=== PATIENT | male | born 1960 | race Caucasian/White ===

== ENCOUNTER 2021-08-14 21:46 | Emergency (ER) | payer OTHER ==
[~2021-08-14] VITALS: Ht 188 cm; Wt 119.0 kg
[~2021-08-14 21:46] MED LIST: AMLO2.5T4 PO; ASPI-1264 PO; ATEN-169 PO; ATOR20TA PO; HYT5T PO; LORA0.5T PO; METH-233 PO; OMEG1CAP46 PO; OMEP-84 PO; VENL25TA48 PO; VITAMIN B 12 PO
[2021-08-14] MEDS ORDERED: CASIRIVIMAB/IMDEVIMAB inject. 10 ML in normal saline 100ml IV soln 100 ML IV ONE (22:35)
[2021-08-14] MEDS ORDERED: acetaminophen 325mg tablet PO PRN (22:45)
[2021-08-14] MEDS ORDERED: epiNEPHrine 1 mg/ml inj IM PRN (22:45)
[2021-08-14] MEDS ORDERED: famotidine/PF 10 mg/ml inj IV PRN (22:45)
[2021-08-14] MEDS ORDERED: diphenhydrAMINE 50 mg/ml inj IV PRN (22:45)
[2021-08-14] MEDS ORDERED: hydrocortisone sod succ/PF 100mg/2ml inj. IV PRN (22:45)
[2021-08-14] MEDS ORDERED: albuterol 2.5 MG/3 ML nebule NEB PRN (22:45)
[2021-08-14 23:56] VITALS: BP 131/68
== END 2021-08-15 | disposition home or self-care (01) ==
LOC: ER 21:47
DX: U07.1 COVID-19 (principal); R19.7 Diarrhea, unspecified; R09.81 Nasal congestion; R06.02 Shortness of breath; R05.9 Cough, unspecified; I10 Essential (primary) hypertension; F41.9 Anxiety disorder, unspecified; E11.9 Type 2 diabetes mellitus without complications; Z86.73 Personal history of transient ischemic attack (TIA), and cerebral infarction without residual deficits; Z72.89 Other problems related to lifestyle; Z88.8 Allergy status to other drugs, medicaments and biological substances; Z79.82 Long term (current) use of aspirin; Z79.899 Other long term (current) drug therapy
CPT/HCPCS: 71045; 99283; M0243; Q0244

== ENCOUNTER 2024-09-13 17:55 | Emergency (ER) | payer OTHER ==
[~2024-09-13] VITALS: Ht 188 cm; Wt 104.5 kg
[2024-09-13] MEDS ORDERED: TRAZ-251 PO (22:04)
[2024-09-13] MEDS: quetiapine 100mg tablet PO ONE (22:16)
[2024-09-13] MEDS: traZODone 50mg tablet PO STA (22:17)
[2024-09-13 22:46] VITALS: BP 148/88; PULSE 81; RESP 16; TEMP 98.3; O2SAT 98
== END 2024-09-13 22:50 | disposition home or self-care (01) ==
LOC: ER 17:55
DX: R45.851 Suicidal ideations (principal); Z20.822 Contact with and (suspected) exposure to COVID-19; I10 Essential (primary) hypertension; F41.9 Anxiety disorder, unspecified; F32.A Depression, unspecified; G20.A1 Parkinson's disease without dyskinesia, without mention of fluctuations; Z88.5 Allergy status to narcotic agent; Z88.6 Allergy status to analgesic agent; Z79.899 Other long term (current) drug therapy; Z79.82 Long term (current) use of aspirin; Z86.73 Personal history of transient ischemic attack (TIA), and cerebral infarction without residual deficits; Z87.891 Personal history of nicotine dependence
CPT/HCPCS: 36415; 87811; 99285

== ENCOUNTER 2024-10-11 19:19 | Emergency (ER) | payer OTHER ==
[~2024-10-11] VITALS: Ht 185.4 cm; Wt 101.0 kg
[~2024-10-11 19:19] MED LIST changes: +TRAZ-251 PO
[2024-10-11 19:22] VITALS: TEMP 98.5
[2024-10-11] MEDS ORDERED: QUET-1 PO (19:56)
[2024-10-11] MEDS: quetiapine 100mg tablet PO ONE (20:09)
[2024-10-11 20:27] VITALS: BP 133/78; PULSE 78; RESP 14; O2SAT 96
== END 2024-10-11 20:31 | disposition home or self-care (01) ==
LOC: ER 19:19
DX: F99 Mental disorder, not otherwise specified (principal); I10 Essential (primary) hypertension; Z76.0 Encounter for issue of repeat prescription; Z88.5 Allergy status to narcotic agent; Z79.1 Long term (current) use of non-steroidal anti-inflammatories (NSAID); Z79.899 Other long term (current) drug therapy; Z86.73 Personal history of transient ischemic attack (TIA), and cerebral infarction without residual deficits; Z72.89 Other problems related to lifestyle
CPT/HCPCS: 99284

== ENCOUNTER 2025-05-29 09:51 | Inpatient (IN) | payer OTHER, MEDICARE ==
[~2025-05-29] VITALS: Ht 188 cm; Wt 103.0 kg
[2025-05-29 10:14] LABS: MEAN PLATELET VOLUME 9.2 FL (7.4-10.4); RED CELL DISTRIBUTION WIDTH 15.0 % (11.5-14.5)
[2025-05-29 10:22] LABS: CREATININE 1.44 MG/DL (0.60-1.10); TOTAL CARBON DIOXIDE 25.0 MMOL/L (24-32); eCRCL 59 ML/MIN; eGFR 49 ML/MIN
--- NOTE | 2025-05-29 10:37 | RADIOLOGY REPORT ---
CHEST RADIOGRAPH Indication: sepsis alert Technique: Single frontal view of the chest was obtained COMPARISON: CHEST,SINGLE VIEW on DOS: 08/14/21 FINDINGS: Lines and Tubes: None Lungs: Clear Pleura: No effusion. No pneumothorax. Cardiomediastinal contours: Cardiomegaly Bones: Unremarkable IMPRESSION: No acute disease.
[2025-05-29] MEDS: CefTRIAXone/D5W-Rocephin 1gm 50 ML IV ONE (11:04)
[2025-05-29] MEDS: normal saline 1000ml 1,000 ML IV ONE ×2 (11:04→13:12)
[2025-05-29 12:12] LABS: LEUKOCYTE ESTERASE ,URINE NEGATIVE (Neg); NITRITES, URINE NEGATIVE (Neg); OCCULT BLOOD,URINE NEGATIVE (Neg)
[2025-05-29 12:13] LABS: UA COLLECTION TYPE VOIDED
[2025-05-29] MEDS: diltiazem 5mg/ml 5ml inj. IV ONE (12:46)
--- NOTE | 2025-05-29 13:11 | ELECTROCARDIOGRAPH REPORT ---
[facility] Test Date: 2025-05-29 Test Time: 09:56:45 Pat Name: TENNILLE GEE Department: EMERGENCY ROOM Room: Gender: M [employer]: : 1960 Requested By: FORTINO SOLANO Order Number: [id number] Reading MD: Measurements Intervals [place] Rate: 134 P: 223 LA: 89 QRS: 38 QRSD: 207 T: 38 QT: 412 QTc: 616 Interpretive Statements Ectopic atrial tachycardia, unifocal Right bundle branch block Please click the below link to view image of tracing.
[2025-05-29] MEDS: adenosine 3mg/ml 2ml vial IV ONE (13:53)
[2025-05-29] MEDS ORDERED: diltiazem-D5W 125mg/125ml 125 ML IV SCH (14:25)
[2025-05-29] MEDS: diltiazem-NS 100mg/100ml 100 ML IV SCH ×2 (14:39→21:11)
--- NOTE | 2025-05-29 14:50 | Physician Documentation ---
History of Present Illness ~ Chief Complaint: ALOC Stated Complaint: ALOC Time Seen by MD: 10:08 Primary Medical Doctor: ROBERT Mode of Arrival: EMS HPI 64 year old male BIB EMS after family members reported that he has been altered and they believe he may have a UTI. The patient has no medical complaints and denies fever, N/V/D, urinary symptoms, chest / abdominal pain. En route EMS noted an elevated heart rate. Medication Reconciliation Allergies: Coded Allergies: hydrocodone (Verified Adverse Reaction, Mild, hallucinate, 10/11/24) oxycodone (Verified Adverse Reaction, Mild, hallucinate, 10/11/24) Scheduled Amlodipine* (Norvasc*), 4 TAB PO DAILY, (Reported) Aspirin (Ecotrin*), 81 TAB PO DAILY, (Reported) Atorvastatin Calcium* (Lipitor*), 1 TABLET PO HS, (Reported) Clopidogrel Bisulfate (Plavix), 75 MG PO DAILY, (Reported) Gabapentin (Gabapentin), 1 CAP PO HS, (Reported) Levothyroxine Sodium (Levothyroxine Sodium), 200 PO QAM, (Reported) Pantoprazole Sodium (Pantoprazole Sodium), 1 TAB PO BID, (Reported) Quetiapine Fumarate (Seroquel), 2 TAB PO HS, (Reported) Ropinirole Hcl (Ropinirole Hcl), 1 TAB PO HS, (Reported) Tamsulosin Hcl* (Flomax*), 2 CAP PO HS, (Reported) Venlafaxine Hcl* (Effexor*), 300 MG PO DAILY, (Reported) [Vitamin B 12], 500 MCG PO DAILY, (Reported) Discontinued Medications Amlodipine Besylate (Amlodipine Besylate), 5 MG PO DAILY, (Reported) Discontinued Reason: Other Aspirin* (Aspirin*), 325 MG PO DAILY Discontinued Reason: Other Atenolol (Tenormin), 50 MG PO DAILY, (Reported) Discontinued Reason: patient no longer taking Atorvastatin Calcium* (Lipitor*), 20 MG PO HS, (Reported) Discontinued Reason: Other Lorazepam* (Ativan*), 0.5 MG PO TID PRN for for anxiety/agitation, (Reported) Discontinued Reason: patient no longer taking Methocarbamol (Methocarbamol), 750 MG PO BID, (Reported) Discontinued Reason: patient no longer taking [place]-3 Fatty Acids/Fish Oil ([place] 3 1,000 Mg Softgel), 1 EACH PO DAILY, (Repor reggie) Discontinued Reason: patient no longer taking Omeprazole* (Prilosec*), 40 MG PO DAILY, (Reported) Discontinued Reason: patient no longer taking Terazosin Hcl (HYTRIN capsule), 5 MG PO DAILY, (Reported) Discontinued Reason: patient no longer taking Trazodone HCl (Trazodone HCl), 1 TAB PO HS Discontinued Reason: patient no longer taking Past Medical History Past Medical History: CVA/TIA/Stroke, Multiple Sclerosis, Hypertension, Anxiety Past Surgical History: noncontributory Smoking Status: Former smoker Alcohol Use: Occasionally Drug Use: none Review of Systems All Other Systems at this time: Reviewed and Negative Physical Exam Vital Signs: RN Vital Signs have been reviewed: Yes, Temperature: 98.2, Source: Oral, Heart Rate: 131, Respiratory Rate: 19, BP: 146/108, Pulse Oximetry: 100, Weight: 103.000 Oxygen Flow Rate: 0 Physical Exam HEENT: PERRL, moist oral mucosa, EOMI Pulmonary: No respiratory distress Cardiac: regular tachycardia, no murmur, rub or gallop GI: nondistended, soft, nontender, no guarding, no rebound MSK: no deformity Skin: w/d/i, no rash Neuro: partially oriented, alert, nonfocal Psych: normal affect Progress Results/Orders Results/Orders Orders - FORTINO SOLANO MD Culture Blood (05/29/25 10:05) Chest,Single View (05/29/25 10:05) Monitor (05/29/25 10:05) Saline Lock (05/29/25 10:05) Straight Cath For Urine Sample (05/29/25 10:05) Page Hospitalist (05/29/25 ) Completed Orders - FORTINO SOLANO MD Cbc/Diff (05/29/25 10:05) Urinalysis, Cult If Indicated (05/29/25 10:05) Chest,Single View (05/29/25 10:05) Procalcitonin (05/29/25 10:05) Lacticsepsis (05/29/25 10:05) Normal Saline 1000ml (0.9% Sodium Chlori (05/29/25 10:45) Ceftriaxone/D4w-Vuwdcenz 1gm (Rocephin 1 (05/29/25 10:50) Lactic,2hr (05/29/25 11:44) Diltiazem Iv (Cardizem Iv 5mg/Ml Inj.) (05/29/25 12:40) Normal Saline 1000ml (0.9% Sodium Chlori (05/29/25 13:05) Electrocardiogram (05/29/25 09:56) Adenosine Inj. (Adenocard Inj.) (05/29/25 13:40) Diltiazem-Ns 100mg/100ml (Cardizem-Ns 10 (05/29/25 14:15) CMP (05/29/25 10:04) Hgb A1c (05/29/25 10:04) MG (05/29/25 10:04) PBNP (05/29/25 10:04) Vital Signs 05/29/25 05/29/25 05/29/25 05/29/25 09:54 10:03 11:08 11:18 Temp 98.2 Pulse 135 132 131 Resp 18 16 18 19 B/P (MAP) 106/74 98/70 (79) 114/83 (93) Pulse Ox 100 98 100 05/29/25 05/29/25 05/29/25 05/29/25 12:12 12:46 12:48 13:13 Temp 98.2 98.2 Pulse 131 131 131 130 Resp 21 17 15 B/P (MAP) 137/97 (110) 143/100 143/100 (114) 145/104 (118) Pulse Ox 98 99 99 O2 Flow Rate 0 05/29/25 05/29/25 13:55 14:39 Temp 98.2 Pulse 130 131 Resp 19 B/P (MAP) 144/102 (116) 146/108 Pulse Ox 100 O2 Flow Rate 0 Laboratory Tests Test 05/29/25 10:04 05/29/25 11:55 05/29/25 12:00 White Blood Count 4.6 Red Blood Count 4.48 L Hemoglobin 13.3 L Hematocrit 39.6 L Mean Corpuscular Volume 88.4 Mean Corpuscular Hemoglobin 29.7 Mean Corpuscular Hemoglobin Concent 33.6 Red Cell Distribution Width 15.0 H Platelet Count 144 Mean Platelet Volume 9.2 Neutrophils (%) (Auto) 69.0 Lymphocytes (%) (Auto) 18.1 L Monocytes (%) (Auto) 9.0 Eosinophils (%) (Auto) 3.0 Basophils (%) (Auto) 0.9 Neutrophils # (Auto) 3.2 Lymphocytes # (Auto) 0.8 L Monocytes # (Auto) 0.4 Eosinophils # (Auto) 0.1 Basophils # (Auto) 0.0 CBC Comment Sodium Level 140 Potassium Level 3.3 L Chloride Level 106 Carbon Dioxide Level 25.0 Anion Gap 9 Blood Urea Nitrogen 22 H Creatinine 1.44 H Estimated GFR/1.73 m2 49 BUN/Creatinine Ratio 15.3 Glucose Level 148 H Hemoglobin A1c 6.0 Lactic Acid Level 2.4 H 0.9 Calcium Level 7.9 L Magnesium Level 1.4 L Total Bilirubin 0.8 Aspartate Amino Transf (AST/SGOT) 15 Alanine Aminotransferase (ALT/SGPT) 18 Alkaline Phosphatase 111 Pro-B-Type Natriuretic Peptide 276 H Total Protein 6.2 L Albumin 3.3 L Globulin 2.9 Albumin/Globulin Ratio 1.1 Procalcitonin < 0.05 Chemistry Comments Urine Specimen Description Voided Urine Color Yellow Urine Clarity Clear Urine pH 6.0 Urine Specific [place] 1.020 Urine Protein Negative Urine Glucose (UA) Negative Urine Ketones Negative Urine Occult Blood Negative Urine Nitrite Negative Urine Bilirubin Negative Urine Urobilinogen 0.2 Urine Leukocyte Esterase Negative Urine Culture Indicated Not ind Volume Urine Centrifuged 10 ml Urine Comment Microbiology Date/Time Source Procedure Growth Status 05/29/25 10:32 Blood Arm Right Blood Culture - Preliminary NEGATIVE (LESS THAN 24 HOURS) Resulted EKG/XRAY/CT/US/VASC/MRI EKG : Indication: ALOC/confusion EKG: a flutter Additional Comment my interpretation: no STEMI criteria, rate 134/min, atrial flutter Chest X-Ray : Interpreted By: self Views: 1 VIEW Indication: ALOC/confusion Lungs: normal Mediastinum: cardiomegaly Ribs/Bones: normal Abdomen: normal Medical Decision Making Findings 64 year old male as above, with noted tachycardia which appeared to be either sinus tachycardia with aberrant conduction vs. atrial flutter with RVR. Workup was significant for atrial flutter with RVR after we slowed the patient's heart rate with adenosine and discerned the actual underlying rhythm. Started diltiazem drip and care transferred to hospitalist. This patient required 30 minutes of critical care time apart from separately billable procedures for rate control and volume resuscitation, frequent reexaminations. Differential Dx:Considerations: Include: DKA, encephalopathy, hypoglycemia, hypernatremia, subarachnoid hemorrhage, infection - sepsis, infection - UTI, heart failure, renal failure, respiratory failure Departure Disposition: ADMITTED INPATIENT Admitted to Inpatient Unit: to hospitalist Admission Level of Care: Med/Surg with Tele Impression: Primary Impression: Atrial flutter with rapid ventricular response Condition: Stable Referrals: NO PRIMARY CARE PROVIDER (PCP) Education Educated: Patient, Family Educated regarding: diagnosis, treatment, prognosis, need for follow up Signature Scribe Signature: . Attestation: . FORTINO SOLANO MD May 29, 2025 14:50
[2025-05-29] MEDS ORDERED: potassium Cl 40MEQ/1/2NS 520ml 520 ML IV PRN (15:15)
[2025-05-29] MEDS ORDERED: magnesium sulf-water 2g/50mL 50 ML IV PRN (15:15)
[2025-05-29] MEDS ORDERED: magnesium Cl slow-release 64mg tablet PO PRN (15:15)
[2025-05-29] MEDS ORDERED: magnesium sulf-water 4G/100mL 100 ML IV PRN (15:15)
[2025-05-29] MEDS ORDERED: potassium Cl 20 mEq SR tablet PO PRN (15:15)
[2025-05-29] MEDS ORDERED: magnesium hydroxide 30ml (MOM) UD suspension PO PRN (15:15)
[2025-05-29] MEDS ORDERED: HYDROcodone/acetaminophen 5mg/325mg tablet PO PRN (15:15)
[2025-05-29] MEDS ORDERED: mag hydrox/Alum hydrox/simeth 30ml oral suspension PO PRN (15:15)
[2025-05-29] MEDS ORDERED: ondansetron/PF 4mg/2ml inj IV PRN (15:15)
[2025-05-29] MEDS ORDERED: HYDROcodone/acetaminophen 10/325mg tab PO PRN (15:15)
[2025-05-29 16:00] LABS: PRO BRAIN NATRIURETIC PEPTIDE 276 PG/ML (0-125)
[2025-05-29 16:40] VITALS: BP 136/89; PULSE 133; RESP 18; TEMP 98.3; O2SAT 97
[2025-05-29 17:00] VITALS: BP 154/113; PULSE 130
[2025-05-29 17:15] VITALS: BP 151/101; PULSE 131
[2025-05-29 17:30] VITALS: BP 147/104; PULSE 132; RESP 20; O2SAT 95
--- NOTE | 2025-05-29 17:49 | ELECTROCARDIOGRAPH REPORT ---
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 AGUSTÍN Esparza Measurements Intervals [place] Rate: 106 P: 0 HI: 0 QRS: 14 QRSD: 188 T: -85 QT: 434 QTc: 577 Interpretive Statements Atrial flutter with predominant 3:1 AV block Right bundle branch block Electronically Signed On 05-29-2025 19:51:[address] AGUSTÍN Esparza Please click the below link to view image of tracing.
[2025-05-29] MEDS ORDERED: AMLO2.5T2 PO (17:53)
[2025-05-29 18:00] VITALS: BP_SYST 135; BP_SYST 158; BP_DIAS 101; BP_DIAS 109; PULSE 126; PULSE 136; RESP 23; TEMP 97.4; O2SAT 97
[2025-05-29] MEDS ORDERED: ATOR-429 PO (18:03)
[2025-05-29] MEDS ORDERED: GABA-530 PO (18:03)
[2025-05-29] MEDS ORDERED: QUET25TA PO (18:03)
[2025-05-29] MEDS ORDERED: ASPI-1071 PO (18:03)
[2025-05-29] MEDS ORDERED: PANT40TA54 PO (18:03)
[2025-05-29] MEDS ORDERED: TAMS-55 PO (18:03)
[2025-05-29] MEDS ORDERED: ROPI2TAB29 PO (18:03)
[2025-05-29] MEDS ORDERED: CLOP-32 PO (18:03)
[2025-05-29] MEDS ORDERED: LEVO150T8 PO (18:10)
--- NOTE | 2025-05-29 18:24 | HISTORY AND PHYSICAL-Residence ---
History & Physical Providers to CC Resident Creating Document: CECILIA LOPEZ, RES ~ History of Present Illness Primary Medical Doctor: ROBERT Reason for Admit\Complaint: Atrial flutter History of Present Illness This is a 64-year-old male with a history of CVA, stroke, factor V mutation, history of renal cancer s/p partial nephrectomy in 2006, history of thyroid cancer s/p thyroidectomy five years ago, hyperlipidemia, depression, restless leg syndrome was brought to the ER because of high heart rate and low blood pressure. Most of the history was taken from the patient's girlfriend. She reported that since the last few days she noticed increased forgetfulness. He also had two falls in the last one week secondary to balance issues. This morning she checked the blood pressure, showed a pressure of 77/85 and a pulse rate of 135, she contacted the [facility] who advised her to take the patient to ER. The patient denied any complaints of chest pain, palpitations, lightheadedness, leg swellings. Also denied any fever, dysuria, increased frequency of urination. Also denied headache, blurring of vision, slurring of speech, any focal weakness. Also denied any recent nausea or vomiting. Line patient denied any cardiac history, does not follow any internal revenue service agent Allergies: Coded Allergies: hydrocodone (Verified Adverse Reaction, Mild, hallucinate, 10/11/24) oxycodone (Verified Adverse Reaction, Mild, hallucinate, 10/11/24) Home Medications Home Medications Active Trazodone HCl 50 Mg Tablet 1 Tab PO HS 30 Days Aspirin* (Aspirin) 325 Mg Tablet 325 Mg PO DAILY Reported HYTRIN capsule (Terazosin Hcl) 5 Mg Capsule 5 Mg PO DAILY Ativan* (Lorazepam) 0.5 Mg Tablet 0.5 Mg PO TID PRN Methocarbamol 750 Mg Tablet 750 Mg PO BID Tenormin (Atenolol) 50 Mg Tablet 50 Mg PO DAILY Amlodipine Besylate 2.5 Mg Tablet 5 Mg PO DAILY [Vitamin B 12] 500 Mcg PO DAILY Lipitor* (Atorvastatin Calcium) 20 Mg Tablet 20 Mg PO HS Prilosec* (Omeprazole) 20 Mg Capsule.dr 40 Mg PO DAILY [place] 3 1,000 Mg Softgel ([place]-3 Fatty Acids/Fish Oil) 1 Each Capsule 1 Each PO DAILY Effexor* (Venlafaxine HCl) 25 Mg Tablet 300 Mg PO DAILY Past Medical History Past Medical History CVA, history of five strokes, the last one was three years ago, no residual weakness Factor five laden mutation, on Plavix History of renal cancer s/p left partial nephrectomy in 2007 History of thyroid cancer sp thyroidectomy five years ago Restless leg syndrome Hypertension Hyperlipidemia History of skin cancer Right groin hernia Past Surgical History Surgical History Comment Left partial nephrectomy in 2006 for renal cancer Thyroidectomy for thyroid cancer Past Social History Social History Comment Quit smoking 14 years ago, previously smoked about a pack a day for five years Occasional alcoholic Denies any history of drug use Lives with his girlfriend who is also his caregiver Uses a walker Smoking: Quit greater than 1 year Alcohol Use: Occasionally Drug Use: None ROS All Other Systems: Reviewed and Negative Constitutional: Reports: weakness Eyes: Denies: no symptoms reported, see HPI, pain, discharge, blurred vision, double vision, itching, photophobia, redness, tearing, other ENT: Denies: no symptoms reported, see HPI, ear pain, ear bleeding, ear discharge, hearing loss, ear ringing, nose pain, nose bleeding, nose congestion, nose discharge, throat pain, throat swelling, voice change, mouth pain, mouth bleeding, mouth swelling, other Respiratory: Denies: no symptoms reported, see HPI, cough, orthopnea, shortness of breath, SOB with exertion, SOB at rest, stridor, wheezing, hemoptysis, pain with breathing, other Cardiovascular: Denies: no symptoms reported, see HPI, chest pain, left arm pain, diaphoresis, lightheadedness, syncope, edema, palpitations, irregular heart rate, other Gastrointestinal: Denies: no symptoms reported, see HPI, abdomen distended, abdominal pain, nausea, vomiting, diarrhea, constipated, melena, hematemesis, hematochezia, rectal bleeding, rectal pain, dysphagia, poor appetite, poor fluid intake, other Genitourinary: Denies: no symptoms reported, see HPI, burning, discharge, dysuria, frequency, flank pain, hematuria, incontinence, pain, decreased urine output, urgency, other Neurological: Denies: no symptoms reported, see HPI, speech problem, headache, dizziness, fainting, tingling, left sided numbness, right sided numbness, left sided weakness, right sided weakness, problems walking, unable to move lower ext, unable to move upper ext, petit mal seizures, tonic-clonic seizures, cognitive dysfunction, other Exam Vitals: Vital Signs Date Time Temp Pulse Resp B/P (MAP) Pulse Ox O2 Delivery O2 Flow Rate FiO2 05/29/25 17:35 117 05/29/25 16:40 98.3 18 136/89 (105) 97 Room Air 05/29/25 15:28 0 General: General: Awake and Alert oriented to place, person, not to time HEENT: Conjunctiva pink, Sclera clear, Mucus Membranes dry Neck: Supple without masses and tenderness. Resp: Unlabored. Equal breath sounds bilaterally. Heart: Tachycardic, normal S1 and S2, no rub, no murmur Abdomen: Soft and non tender no organomegaly. Normal bowel sounds x4 quadrant normoactive. No guarding or rigidity. Extremities: Normal ROM, no swelling, nontender. No cyanosis,clubbing or edema. DOG HANDLER: No gross motor or sensory abnormalities. Bilateral upper and lower extremity strength 5/5, cranial nerve exam normal Skin: Warm and Dry. Diagnostic Data Last Recorded Lab Results: 05/29/25 1004 05/29/25 1004 Advance Care Planning Advanced Care plannin - 30 Minutes (I spent 17 minutes in discussing various resuscitative measures, the patient chose to be full code.) Additional Plan Assessment This is a 64-year-old male with a history of CVA, stroke, factor V mutation, history of renal cancer s/p partial nephrectomy in 2006, history of thyroid cancer s/p thyroidectomy five years ago, hyperlipidemia, depression, restless leg syndrome was brought to the ER because of high heart rate and low blood pressure. Patient is in atrial flutter, was started on Cardizem drip. Plan Atrial flutter, rapid ventricular rate 2:1,3;1,4:1 Ajit vasc score 4 Initially there was a question of SVT, was given adenosine 12 mg one dose Started on diltiazem 10 mg bolus followed by drip 5 mg/hr. Started on apixaban 5 mg b.i.d. TSH ordered ProBNP, 276 Echo showed an ejection fraction of 55%, mild concentric hypertrophy, moderate mitral valve regurgitation. Trigger-unknown Lactic acidosis Had elevated lactic acid, 2.4 at the time of presentation, trended down to 0.9 WBC count and procalcitonin in the normal range Received 2 L of NS in the ER and one dose of ceftriaxone. Metabolic encephalopathy Possible underlying vascular dementia, Mini-mental state examination-score 26 Electrolytes in the normal range, hypokalemia Urine analysis negative for infection mild lactic acidosis which improved TSH, vitamin B12 ordered History of CVA, stroke Continued patient's home medication aspirin, Plavix and atorvastatin NURIS secondary to renal tubular stasis History of renal cancer s/p partial nephrectomy Mild hypokalemia Creatinine 1.44, baseline is unknown Potassium 3.3 We will follow up with repeat labs Factor five Leiden mutation Continued patient's home medication Plavix History of thyroid cancer s/p thyroidectomy Hypothyroidism Continued patient's home medication levothyroxine Restless leg syndrome Continued patient's home medication ropinirole and gabapentin BPH Continued patient's home medication tamsulosin Hypertension continued patient's home medication amlodipine 10 mg daily Code status: Full code DVT prophylaxis: Apixaban GI prophylaxis: Pantoprazole Diet: Heart healthy diet Status: Guarded Cecilia Lopez M.D PGY2 Date of Service: May 29, 2025 Billing Provider: JENNIFER HUTTON MD Common Visit Codes: [id number] INP/OBS CARE (HIGH) Secondary Visit Codes: [id number] CARE PLAN 30 MINUTES CECILIA LOPEZ, SAMANTA May 29, 2025 18:24 JENNIFER HUTTON MD Jun 03, 2025 11:11
[2025-05-29] MEDS ORDERED: diltiazem-NS 100mg/100ml 100 ML IV SCH (19:18)
[2025-05-29] MEDS: K and/or MAG REPLACEMENT MC SCH (20:00)
[2025-05-29] MEDS: pantoprazole 40mg Tablet.DR PO SCH (21:16)
[2025-05-29] MEDS: docusate sod 100mg capsule PO SCH (21:16)
[2025-05-29 22:00] VITALS: BP 141/83; PULSE 91; RESP 27; TEMP 97.5; O2SAT 97
[2025-05-30] VITALS (9 sets, daily range): BP systolic 111–144; BP diastolic 53–98; PULSE 97–136; RESP 12–22; TEMP 97.4–97.9; O2SAT 94–97
[2025-05-30] MEDS: potassium Cl 20 mEq SR tablet PO PRN (00:14)
[2025-05-30] MEDS: diltiazem 5mg/ml 5ml inj. IV ONE (03:19)
[2025-05-30] MEDS: diltiazem-NS 100mg/100ml 100 ML IV SCH (04:15)
[2025-05-30 06:15] LABS: MEAN PLATELET VOLUME 9.3 FL (7.4-10.4); RED CELL DISTRIBUTION WIDTH 14.7 % (11.5-14.5)
[2025-05-30 06:33] LABS: TOTAL CARBON DIOXIDE 26.2 MMOL/L (24-32)
[2025-05-30 06:34] LABS: CHOL/HDL RATIO 2.1 (0.00-4.99); CREATININE 0.99 MG/DL (0.60-1.10); LDL CHOLESTEROL 44 MG/DL (50-100); eCRCL 86 ML/MIN; eGFR 76 ML/MIN
[2025-05-30] MEDS: CefTRIAXone/D5W-Rocephin 1gm 50 ML IV SCH (07:38)
[2025-05-30] MEDS: cyanocobalamin 500mcg tablet PO SCH (07:39)
[2025-05-30] MEDS: aspirin 81mg, enteric-coated 1 TAB TABLET.DR PO SCH (07:39)
--- NOTE | 2025-05-30 12:54 | PROGRESS NOTE- Residence ---
Progress Note - Resident Providers to CC Resident Creating Document: CECILIA LOPEZ RES ~ Antibiotic Timeout Antibiotic Ordered?: Yes Subjective Patient was seen and examined at bedside today. Patient denied any complaints of chest pain, palpitations. No overnight events. Heart rate continues to be in 130s. Currently on Cardizem 10mcg per hour Objective Vital Signs Date Time Temp Pulse Resp B/P (MAP) Pulse Ox O2 Delivery O2 Flow Rate FiO2 05/30/25 10:57 133 144/92 05/30/25 08:00 12 95 Room Air 05/30/25 06:00 97.4 05/29/25 15:28 0 Result Diagram: 05/30/2552205/30/25522 General: Awake and Alert oriented to place, person, not to time HEENT: Conjunctiva pink, Sclera clear, Mucus Membranes dry Neck: Supple without masses and tenderness. Resp: Unlabored. Equal breath sounds bilaterally. Heart: Tachycardic, normal S1 and S2, no rub, no murmur Abdomen: Soft and non tender no organomegaly. Normal bowel sounds x4 quadrant normoactive. No guarding or rigidity. Extremities: Normal ROM, no swelling, nontender. No cyanosis,clubbing or edema. WRAPPER SORTER: No gross motor or sensory abnormalities. Bilateral upper and lower extremity strength 5/5, cranial nerve exam normal Skin: Warm and Dry. Plan Plan Assessment This is a 64-year-old male with a history of CVA, stroke, factor V mutation, history of renal cancer s/p partial nephrectomy in 2006, history of thyroid cancer s/p thyroidectomy five years ago, hyperlipidemia, depression, restless leg syndrome was brought to the ER because of high heart rate and low blood pressure. Patient is in atrial flutter, was started on Cardizem drip. Cardizem drip discontinued on Cardizem 240 mg daily Plan Atrial flutter, rapid ventricular rate 2:1,3;1,4:1 Ajit vasc score 4 Initially there was a question of SVT, was given adenosine 12 mg one dose Started on diltiazem 10 mg bolus followed by drip 5 mg/hr. Started on apixaban 5 mg b.i.d. TSH ordered ProBNP, 276 Echo showed an ejection fraction of 55%, mild concentric hypertrophy, moderate mitral valve regurgitation. Trigger-unknown 05/30/2025 This morning patient's heart rate was in 130s, last night received 20 mg of Cardizem bolus followed by Cardizem 10 mcg per hour Cardizem drip has been discontinued Started on Cardizem 240 mg daily Continued Eliquis 5 mg b.i.d. Patient has low TSH and high T4 Lactic acidosis Had elevated lactic acid, 2.4 at the time of presentation, trended down to 0.9 Lactic acidosis could be secondary to the low blood pressure he had a before he came to the hospital WBC count and procalcitonin in the normal range Received 2 L of NS in the ER and one dose of ceftriaxone. Metabolic encephalopathy Possible underlying vascular dementia, Mini-mental state examination-score 26 Electrolytes in the normal range, hypokalemia Urine analysis negative for infection mild lactic acidosis which improved TSH is low Vitamin B12 pending History of CVA, stroke Continued patient's home medication aspirin, Plavix and atorvastatin NURIS secondary to renal tubular stasis History of renal cancer s/p partial nephrectomy Mild hypokalemia Creatinine 1.44, baseline is unknown Potassium 3.3 We will follow up with repeat labs 05/30/2025 Creatinine improved to normal level, 0.99 Potassium 3.3 Factor five Leiden mutation Patient is currently on Eliquis 5 mg b.i.d. History of thyroid cancer s/p thyroidectomy Hypothyroidism Continued patient's home medication levothyroxine Restless leg syndrome Continued patient's home medication ropinirole and gabapentin BPH Continued patient's home medication tamsulosin Hypertension continued patient's home medication amlodipine 10 mg daily and Cardizem 240 mg daily Code status: Full code DVT prophylaxis: Apixaban GI prophylaxis: Pantoprazole Diet: Heart healthy diet Status: Guarded Cecilia Lopez M.D PGY2 Date of Service: May 30, 2025 Billing Provider: JENNIFER HUTTON MD Common Visit Codes: [id number] INP/OBS CARE (LOW), [id number] INP/OBS CARE(HIGH) CECILIA LOPEZ, RES May 30, 2025 12:54 JENNIFER HUTTON MD Jun 03, 2025 11:12
--- NOTE | 2025-05-30 16:36 | CONSULTATION REPORT ---
History of Present Illness Providers to CC CC: CORBIN BETANCUR MD ~ Reason for Admit\Admit Dx: Cardiology consultation Refering MD: ROBERT History of Present Illness This is a 64-year-old male with past medical history significant for CVA x6 with the last CVA being three years ago, factor five Leiden deficiency, renal cell carcinoma status post left partial nephrectomy, thyroid cancer status post thyroidectomy, hyperlipidemia, depression. He follows at the [facility]. Presented secondary to elevated heart rate. Found to be in atrial flutter. Treated with diltiazem drip. Now rate controlled. Allergies: Coded Allergies: hydrocodone (Verified Adverse Reaction, Mild, hallucinate, 10/11/24) oxycodone (Verified Adverse Reaction, Mild, hallucinate, 10/11/24) Home Medications Home Medications Active Reported Levothyroxine Sodium 150 Mcg Tablet 200 PO QAM Seroquel (Quetiapine Fumarate) 25 Mg Tablet 2 Tab PO HS 30 Days Gabapentin 100 Mg Capsule 1 Cap PO HS 30 Days Ropinirole Hcl 2 Mg Tab.er.24h 1 Tab PO HS 30 Days Pantoprazole Sodium 40 Mg Tablet. 1 Tab PO BID 30 Days Flomax* (Tamsulosin HCl) 0.4 Mg Cap.sr.24h 2 Cap PO HS 30 Days Plavix (Clopidogrel Bisulfate) 75 Mg Tablet 75 Mg PO DAILY Do not stop medication unless instructed by prescriber. Lipitor* (Atorvastatin Calcium) 80 Mg Tablet 1 Tablet PO HS Ecotrin* (Aspirin) 81 Mg Tablet. 81 Tab PO DAILY 30 Days Norvasc* (Amlodipine Besylate) 2.5 Mg Tablet 4 Tab PO DAILY [Vitamin B 12] 500 Mcg PO DAILY Effexor* (Venlafaxine HCl) 25 Mg Tablet 300 Mg PO DAILY Past Medical History Medical History Comment CVA, history of six strokes, the last one was three years ago, no residual weakness Factor five laden mutation, states that he is on the red pill that has a blood center History of renal cancer s/p left partial nephrectomy in 2006 History of thyroid cancer s/p thyroidectomy Restless leg syndrome Hypertension Hyperlipidemia History of skin cancer Right groin hernia Past Surgical History Surgical History Comment Left partial nephrectomy in 2006 for renal cancer Thyroidectomy for thyroid cancer Past Social History Social History Comment History of smoking. Quit. Occasional alcohol use. No recreational drugs. Physical Exam Last Vital Signs Recorded: RN Vital Signs have been reviewed: Yes, Temperature: 97.6, Source: Oral, Heart Rate: 97, Respiratory Rate: 16, BP: 140/53, Pulse Oximetry: 94, Weight: 103.000 Physical Exam General: Awake, alert, oriented. No apparent distress Neck: Supple. Normal range of motion. No JVD Respiratory: Lungs are clear to auscultation bilaterally. No respiratory distress. Chest: Normal shape and size. No accessory muscle use. Cardiovascular: Irregularly regular. No murmur, gallop, rub. Gastrointestinal: Abdomen is soft. Nontender to palpation. Bowel sounds present. Extremities: No lower extremity edema, cyanosis or clubbing. Neurologic: Alert and oriented x4. Nonfocal Psychiatric: Normal mood and affect. Skin: Normal color. Warm and dry. Review of Systems ROS Patient denies symptoms of chest pain or pressure. No shortness a breath. No dizziness, lightheadedness or syncope. Was asked, but otherwise denies review of systems. Results Echocardiogram Echocardiogram Preliminary echocardiogram demonstrates an LVEF of 55%. Ascending aorta 4.4 cm with no AI. Diagram Lab Result Diagram: 05/30/25 0523 05/30/25 0523 Assessment/Plan Additional Plan Atrial flutter rapid ventricular response now rate controlled --recommend oral anticoagulation. Has been started on Eliquis. Recommend continuing with Eliquis. He was educated that is he is on another oral anticoagulant he should stop this. --rate control with diltiazem. Start 240 mg daily. Stop diltiazem drip. History of CVA He is on Plavix and aspirin. Hypertension --continue amlodipine --diltiazem as above Hyperlipidemia --continue atorvastatin 80 mg daily Case discussed with Dr. Duane Betancur. In agreement with the above. Patient will follow up with his primary care provider at the [place]. Supervising MD Supervising Physician: KJ Armas NP May 30, 2025 16:36
[2025-05-30] MEDS: diltiazem CD 120mg capsule (once-daily) PO SCH (16:42)
--- NOTE | 2025-05-30 18:53 | CARDIOLOGY REPORT ---
APPROVED REPORT EXAM: Comprehensive 2D, Doppler, and color-flow Echocardiogram. 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 126.5 cm/s AoV VTI 18.4 cm AO Peak GR. 6.4 mmHg AO Mean GR. 4 mmHg LVOT VTI 18.36 cm LVOT Peak Jero. 106.9 cm/s ALPESH(VTI)/BSA 3.93 cm2/m2 ALPESH (VTI) 3.93 cm2 Mitral Valve MV Peak Gr. 1 mmHg MV PHT 40 ms MVA (PHT) 5.50 cm2 MV VMax45.5 cm/s Tricuspid Valve RAP ESTIMATE 10 mmHg LEFT VENTRICLE LV is mildly dilated with mild concentric hypertrophy. Overall systolic function is low normal. LVEF is 55%. RIGHT VENTRICLE RV appears mildly dilated with normal contractility. ATRIA Left atrium is severely dilated. AORTIC VALVE Trileaflet AV appears sclerotic without stenosis. No insufficiency. MITRAL VALVE MV is thickened with mild annular thickening and no stenosis. Moderate mitral regurgitation. TRICUSPID VALVE The tricuspid valve is normal in structure. Trace tricuspid regurgitation. PULMONIC VALVE The pulmonary valve is normal in structure. Trace pulmonic regurgitation. GREAT VESSELS The aortic root is normal in size. The ascending aorta is measured at 4.4 cm. The IVC is normal in si ze and collapses >50% with inspiration. PERICARDIUM There is no pericardial effusion. Other Information Study Quality: Adequate Conclusion LV is mildly dilated with mild concentric hypertrophy. Overall systolic function is low normal. LVEF is 55%. RV appears mildly dilated with normal contractility. Left atrium is severely dilated. Trileaflet AV appears sclerotic without stenosis. No insufficiency. MV is thickened with mild annular thickening and no stenosis. Moderate mitral regurgitation. Trace tricuspid regurgitation. The pulmonary valve is normal in structure. Trace pulmonic regurgitation. The ascending aorta is measured at 4.4 cm. There is no pericardial effusion.
[2025-05-31] VITALS (7 sets, daily range): BP systolic 108–138; BP diastolic 61–94; PULSE 56–134; RESP 17–20; TEMP 97.1–98.9; O2SAT 93–98
[2025-05-31 06:46] LABS: MEAN PLATELET VOLUME 8.8 FL (7.4-10.4); RED CELL DISTRIBUTION WIDTH 15.0 % (11.5-14.5)
[2025-05-31 06:55] LABS: CREATININE 1.03 MG/DL (0.60-1.10); TOTAL CARBON DIOXIDE 28.2 MMOL/L (24-32); eCRCL 83 ML/MIN; eGFR 72 ML/MIN
[2025-05-31] MEDS: metoprolol tartrate 1mg/ml inj IV SCH (12:45)
--- NOTE | 2025-05-31 14:52 | PROGRESS NOTE- Residence ---
Progress Note - Resident Providers to CC Resident Creating Document: SABA PALENCIA RES ~ Antibiotic Timeout Antibiotic Ordered?: No Subjective Patient was seen and examined at bedside today. Patient denied any complaints of chest pain, palpitations. No overnight events. Heart rate continues to be in 130s. Cardizem drip was stopped with and he is on Cardizem 240 mg p.o. daily. Objective Vital Signs Date Time Temp Pulse Resp B/P (MAP) Pulse Ox O2 Delivery O2 Flow Rate FiO2 05/31/25 12:51 132 05/31/25 08:00 19 97 Room Air 05/31/25 02:00 97.1 110/61 (77) 05/29/25 15:28 0 Result Diagram: 05/31/25 0613 05/31/25 0613 Plan Plan Assessment This is a 64-year-old male with a history of CVA, stroke, factor V mutation, history of renal cancer s/p partial nephrectomy in 2006, history of thyroid cancer s/p thyroidectomy five years ago, hyperlipidemia, depression, restless leg syndrome was brought to the ER because of high heart rate and low blood pressure. Patient is in atrial flutter, was started on Cardizem drip. Cardizem drip discontinued on Cardizem 240 mg daily Plan Atrial flutter, rapid ventricular rate 2:1,3;1,4:1 Ajit vasc score 4 Initially there was a question of SVT, was given adenosine 12 mg one dose Started on diltiazem 10 mg bolus followed by drip 5 mg/hr. Started on apixaban 5 mg b.i.d. TSH ordered ProBNP, 276 Echo showed an ejection fraction of 55%, mild concentric hypertrophy, moderate mitral valve regurgitation. Trigger-unknown 05/30/2025 This morning patient's heart rate was in 130s, last night received 20 mg of Cardizem bolus followed by Cardizem 10 mcg per hour Cardizem drip has been discontinued Started on Cardizem 240 mg daily Continued Eliquis 5 mg b.i.d. Patient has low TSH and high T4 05/31/2025 Continue Cardizem 240 mg daily Due to continued uncontrolled heart rate, started on metoprolol 50 mg b.i.d. Lactic acidosis Had elevated lactic acid, 2.4 at the time of presentation, trended down to 0.9 Lactic acidosis could be secondary to the low blood pressure he had a before he came to the hospital WBC count and procalcitonin in the normal range Received 2 L of NS in the ER and one dose of ceftriaxone. Metabolic encephalopathy Possible underlying vascular dementia, Mini-mental state examination-score 26 Electrolytes in the normal range, hypokalemia Urine analysis negative for infection mild lactic acidosis which improved TSH is low Vitamin B12 > 2000 History of CVA, stroke Continued patient's home medication aspirin, Plavix and atorvastatin NURIS secondary to renal tubular stasis History of renal cancer s/p partial nephrectomy Mild hypokalemia Creatinine 1.44, baseline is unknown Potassium 3.3 We will follow up with repeat labs 05/31/2025 Creatinine 1.03 Potassium 3.7 Factor five Leiden mutation Patient is currently on Eliquis 5 mg b.i.d. History of thyroid cancer s/p thyroidectomy Hypothyroidism Continued patient's home medication levothyroxine Restless leg syndrome Continued patient's home medication ropinirole and gabapentin BPH Continued patient's home medication tamsulosin Hypertension continued patient's home medication amlodipine 10 mg daily and Cardizem 240 mg daily Code status: Full code DVT prophylaxis: Apixaban GI prophylaxis: Pantoprazole Diet: Heart healthy diet Status: Guarded Patient is seen and examined with resident at bedside agree with the above Date of Service: May 31, 2025 Billing Provider: SHIRLEY BROWN MD Common Visit Codes: 94123-[id number] INP/OBS CARE(HIGH) SABA PALENCIA, RES May 31, 2025 14:52 SHIRLEY BROWN MD Jun 02, 2025 17:36
--- NOTE | 2025-05-31 16:41 | PROGRESS NOTE ---
Progress Note Cardiology Providers to CC ~ Subjective Subjective Yesterday, after the diltiazem drip was turned off patient went back into RVR with rate in the 130s. He is now back into the 80s atrial flutter. Denies complaints other than wanting to go home. Objective Result Diagram: 05/31/2561205/31/25612 Objective General: Awake, alert, oriented. No apparent distress Neck: Supple. Normal range of motion. No JVD Respiratory: Lungs are clear to auscultation bilaterally. No respiratory distress. Chest: Normal shape and size. No accessory muscle use. Cardiovascular: Irregularly regular. No murmur, gallop, rub. Extremities: No lower extremity edema, cyanosis or clubbing. Neurologic: Alert and oriented x4. Nonfocal Psychiatric: Normal mood and affect. Skin: Normal color. Warm and dry. Problem\Assessment\Plan Additional Plan Atrial flutter rapid ventricular response now rate controlled --recommend oral anticoagulation. Has been started on Eliquis. Recommend continuing with Eliquis. He was educated that is he is on another oral anticoagulant he should stop this. --rate is again controlled on diltiazem. Increase to diltiazem 240 mg b.i.d.. History of CVA He is on Plavix and aspirin. Hypertension --continue amlodipine --diltiazem as above Hyperlipidemia --continue atorvastatin 80 mg daily Case discussed with Dr. Duane Betancur. In agreement with the above. If any further cardiology needs please contact Dr. Gordon directly. Supervising Physician: KJ Armas NP May 31, 2025 16:41
[2025-05-31] MEDS: venlafaxine XR 75mg capsule (Q24H) PO SCH (21:13)
[2025-05-31] MEDS: diltiazem SR 60mg capsule (twice daily) PO SCH (21:14)
--- NOTE | 2025-05-31 23:35 | ELECTROCARDIOGRAPH REPORT ---
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 AGUSTÍN Esparza Measurements Intervals [place] Rate: 129 P: 255 [place]: 78 QRS: 38 QRSD: 155 T: 26 QT: 351 QTc: 515 Interpretive Statements Atrial flutter. Right bundle branch block ST depression, consider ischemia, diffuse lds Electronically Signed On 06-01-2025 11:33:[address] AGUSTÍN Esparza Please click the below link to view image of tracing.
[2025-05-31] MEDS: metoprolol tartrate 1mg/ml inj IV ONE (23:48)
[2025-06-01] MEDS: metoprolol tartrate 1mg/ml inj IV ONE ×2 (00:40→01:15)
[2025-06-01 02:00] VITALS: BP 116/73; PULSE 88; RESP 15; TEMP 97.2; O2SAT 96
[2025-06-01 06:00] VITALS: BP 93/62; PULSE 66; RESP 18; TEMP 97.4; O2SAT 95
[2025-06-01 06:37] LABS: MEAN PLATELET VOLUME 9.1 FL (7.4-10.4); RED CELL DISTRIBUTION WIDTH 15.1 % (11.5-14.5)
[2025-06-01 06:46] LABS: CREATININE 1.49 MG/DL (0.60-1.10); TOTAL CARBON DIOXIDE 27.1 MMOL/L (24-32); eCRCL 57 ML/MIN; eGFR 47 ML/MIN
[2025-06-01 08:00] VITALS: RESP 18; O2SAT 95
[2025-06-01] MEDS: aspirin 81mg, enteric-coated 1 TAB TABLET.DR PO SCH (09:41)
[2025-06-01 11:00] VITALS: BP 101/64; PULSE 68; RESP 18; TEMP 97.6; O2SAT 96
[2025-06-01] MEDS ORDERED: DILT120C88 PO (13:44)
[2025-06-01] MEDS ORDERED: APIX5TAB3 PO (13:44)
--- NOTE | 2025-06-01 17:51 | DISCHARGE SUMMARY-Residence ---
Discharge Summary Providers to CC Resident Creating Document: WAQAS GAUTHIERPATIZABELSAMANTA ~ Discharge Summary Admission Diagnosis: A flutter Hospital Course DATE OF ADMISSION: 05/29/2025 DATE OF DISCHARGE: 06/01/2025 Labs at the time of discharge WBC 7.6 Hemoglobin 14.2 Sodium 141 Creatinine 1.49 BUN 26 Pro BNP 276 TSH 0.21 T4 1.49 Vitamin B12> 2000 A1c 6.0 Blood cultures showed no growth after three days Echocardiogram LV is mildly dilated with mild concentric hypertrophy. Overall systolic function is low normal. LVEF is 55%. RV appears mildly dilated with normal contractility. Left atrium is severely dilated. Trileaflet AV appears sclerotic without stenosis. No insufficiency. MV is thickened with mild annular thickening and no stenosis. Moderate mitral regurgitation. Trace tricuspid regurgitation. The pulmonary valve is normal in structure. Trace pulmonic regurgitation. The ascending aorta is measured at 4.4 cm. There is no pericardial effusion. Discharge Diagnosis\Comment: Atrial flutter, was on rapid ventricular rate, Ajit Vasc score four Lactic acidosis Metabolic encephalopathy Possible underlying vascular dementia History of CVA NURIS secondary to renal tubular stasis Mild hypokalemia History of renal cancer s/p partial nephrectomy History of factor five Leiden mutation History of thyroid cancer s/p thyroidectomy Hypothyroidism Restless leg syndrome BPH Operations\Procedures: None Consultants: Dr. Betancur Complications: None Condition on DC: Stable New Medications: Diltiazem Hcl (Cardizem Cd) 120 Mg Cap.sr.24h 1 CAP PO DAILY for 30 Days, #30 CAP 0 Refills Apixaban (Eliquis) 5 Mg Tablet 5 MG PO BID for 30 Days, #60 TAB Continued Medications: Amlodipine* (Norvasc*) 2.5 Mg Tablet 4 TAB PO DAILY, TAB Aspirin (Ecotrin*) 81 Mg Tablet.dr 81 TAB PO DAILY for 30 Days, #30 TAB Atorvastatin Calcium* (Lipitor*) 80 Mg Tablet 1 TABLET PO HS, TABLET Clopidogrel Bisulfate (Plavix) 75 Mg Tablet 75 MG PO DAILY for ACUTE CORONARY SYNDROME/NSTEMI, #30 TAB 12 Refills Do not stop medication unless instructed by prescriber. Gabapentin (Gabapentin) 100 Mg Capsule 1 CAP PO HS for 30 Days, #90 CAP 0 Refills Levothyroxine Sodium (Levothyroxine Sodium) 150 Mcg Tablet 200 PO QAM Pantoprazole Sodium (Pantoprazole Sodium) 40 Mg Tablet. 1 TAB PO BID for 30 Days, #30 TAB 0 Refills Quetiapine Fumarate (Seroquel) 25 Mg Tablet 2 TAB PO HS for 30 Days, #30 TAB 0 Refills Ropinirole Hcl (Ropinirole Hcl) 2 Mg Tab.er.24h 1 TAB PO HS for 30 Days, #30 TAB 0 Refills Tamsulosin Hcl* (Flomax*) 0.4 Mg Cap.sr.24h 2 CAP PO HS for 30 Days, #30 CAP Venlafaxine Hcl* (Effexor*) 25 Mg Tablet 300 MG PO DAILY [Vitamin B 12] () 500 MCG PO DAILY Discharge Summary: HPI his is a 64-year-old male with a history of CVA, stroke, factor V mutation, history of renal cancer s/p partial nephrectomy in 2006, history of thyroid cancer s/p thyroidectomy five years ago, hyperlipidemia, depression, restless leg syndrome was brought to the ER because of high heart rate and low blood pressure. For the last few days patient had increased forgetfulness and also had two falls in the last one week secondary to balance issues. This morning she checked the blood pressure, showed a pressure of 77/85 and a pulse rate of 135, she contacted the [facility] who advised her to take the pa tient to ER. The patient denied any complaints of chest pain, palpitations, lightheadedness, leg swellings. Also denied any fever, dysuria, increased frequency of urination. Also denied headache, blurring of vision, slurring of speech, any focal weakness. Also denied any recent nausea or vomiting. 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 He was started on Cardizem drip, as the heart rate continued to be in 130s, the Cardizem drip was increased to 10 microgram/hour. Also started on anticoagulation, apixaban 5 mg b.i.d.. The next day patient rate continued to be in 130s, Cardizem drip was discontinued and was started on Cardizem 240 mg daily, increased to 240 mg b.i.d.. On the day of discharge the patient's heart rate was controlled for more than 12 hours, maintaining in 90s, and the blood pressure was borderline hence the Cardizem dose was decreased to 120 mg daily. TSH is low and T4 is high At the time of admission patient had lactic acidosis, 2.4 which trended down to 0.9, likely secondary to low blood pressure before he came to the hospital. WBC and procalcitonin in the normal range. Received 2 L of NS in the ER. Also had metabolic encephalopathy, had possible underlying vascular dementia with mini-mental status examination score is 26. Electrolytes in the normal range, urine analysis negative for infection, vitamin B12 normal Continued patient's home medication has been, Plavix and atorvastatin for history of CVA stroke. Also had NURIS likely secondary to renal tubular stasis and hypokalemia, the kidney function improved with continuous IV hydration. Continue patient's home medication levothyroxine for history of hypothyroidism. Continued ropinirole and gabapentin for history of restless legs syndrome. Continued tamsulosin for BPH. Patient also has a history of factor five mutation. Patient is stable enough to be discharged home. The time of discharge had the following physical examination findings General: Awake and Alert oriented to place, person, not to time HEENT: Conjunctiva pink, Sclera clear, Mucus Membranes dry Neck: Supple without masses and tenderness. Resp: Unlabored. Equal breath sounds bilaterally. Heart: Tachycardic, normal S1 and S2, no rub, no murmur Abdomen: Soft and non tender no organomegaly. Normal bowel sounds x4 quadrant normoactive. No guarding or rigidity. Extremities: Normal ROM, no swelling, nontender. No cyanosis,clubbing or edema. 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 Bilateral upper and lower extremity strength 5/5, cranial nerve exam normal Skin: Warm and Dry. Discharge medications Cardizem CD 120 mg daily Apixaban 5 mg b.i.d. Aspirin 81 mg daily Atorvastatin 80 mg Plavix 75 mg Gabapentin 100 mg Levothyroxine Ropinirole Tamsulosin 0.8 mg daily Venlafaxine 300 mg p.o. daily Discharge instructions Follow up with PCP in two weeks Follow up with Dr. Betacnur in two weeks Continue to take Cardizem 120 mg daily and apixaban 5 mg b.i.d. Discontinue amlodipine Continue to monitor heart rate at home. Call 911 or return to ER in case of chest pain, palpitations, lightheadedness. *Problems/Diagnosis: (1) NURIS (acute kidney injury) (2) Atrial flutter with rapid ventricular response Status: Acute Total Time Spent on D/C: > 30 Minutes Date of Service: Jun 01, 2025 Billing Provider: SHIRLEY BROWN MD Common Visit Codes: 36154-TUP/OBS DISCH DAY >30min GAVIN GAUTHIER, RES Jun 01, 2025 17:50 SHIRLEY BROWN MD Jun 02, 2025 17:36
== END 2025-06-01 15:25 | disposition home health service (06) | DRG 308 ==
LOC: ER 09:52 → ED HOLD 14:40 → PCU 3S 16:20
PROVIDERS: ADMIT Internal Medicine; ATTEND Internal Medicine
DX: I48.92 Unspecified atrial flutter (principal); G93.41 Metabolic encephalopathy; N17.0 Acute kidney failure with tubular necrosis; E87.20 Acidosis, unspecified; G25.81 Restless legs syndrome; E89.0 Postprocedural hypothyroidism; F32.A Depression, unspecified; F41.9 Anxiety disorder, unspecified; N40.0 Benign prostatic hyperplasia without lower urinary tract symptoms; E87.6 Hypokalemia; F01.50 Vascular dementia, unspecified severity, without behavioral disturbance, psychotic disturbance, mood disturbance, and anxiety; E78.5 Hyperlipidemia, unspecified; I10 Essential (primary) hypertension; G35 Multiple sclerosis; Z90.5 Acquired absence of kidney; Z88.5 Allergy status to narcotic agent; Z79.82 Long term (current) use of aspirin; Z79.01 Long term (current) use of anticoagulants; Z79.899 Other long term (current) drug therapy; Z86.73 Personal history of transient ischemic attack (TIA), and cerebral infarction without residual deficits; Z85.528 Personal history of other malignant neoplasm of kidney; Z87.891 Personal history of nicotine dependence; Z85.850 Personal history of malignant neoplasm of thyroid; Z85.828 Personal history of other malignant neoplasm of skin
CPT/HCPCS: 36415; 71045; 80048; 80053; 80061; 81003; 82607; 83036; 83605; 83735; 83880; 84145; 84439; 84443; 85025; 87040; 87081; 93005; 93306; 96361; 96365; 96375; 96376; 97116; 97161; 97530; 99285; A4620; A6590; G0378; J0153; J0696; J3490; J7030; J7040